=== PATIENT | male | born 2000 | race Caucasian/White ===

== ENCOUNTER 2024-05-21 19:29 | Emergency (ER) | payer OTHER ==
[~2024-05-21] VITALS: Ht 193 cm; Wt 117.9 kg
[~2024-05-21 19:29] MED LIST: AMOX50SU PO; CODACEE120 PO
== END 2024-05-21 19:54 | disposition home or self-care (01) ==
LOC: ER 19:29
DX: J40 Bronchitis, not specified as acute or chronic (principal); J06.9 Acute upper respiratory infection, unspecified; Z79.899 Other long term (current) drug therapy
CPT/HCPCS: 99283